=== PATIENT | male | born 1990 | race African-American/Black ===

== ENCOUNTER 2019-10-20 11:23 | Emergency (ER) | payer SELFPAY ==
[~2019-10-20] VITALS: Ht 190.5 cm; Wt 131.0 kg
[2019-10-20] MEDS ORDERED: PREDNISONE 20MG TABLET PO STA (14:14)
[2019-10-20] MEDS ORDERED: ALBUTEROL (0.083%) 2.5MG/3ML NEB HHN STA (14:14)
[2019-10-20] MEDS ORDERED: IPRATROPIUM BROMIDE (0.02%) 0.5MG/2.5ML NEB HHN STA (14:14)
[2019-10-20 14:26] VITALS: BP 147/89
== END 2019-10-20 14:31 | disposition home or self-care (01) ==
LOC: ER 11:30
DX: J20.9 Acute bronchitis, unspecified (principal)
CPT/HCPCS: 71045; 99283; J7512; J7611

== ENCOUNTER 2021-03-01 22:11 | Emergency (ER) | payer SELFPAY ==
[~2021-03-01] VITALS: Ht 190.5 cm; Wt 137.0 kg
[2021-03-01] MEDS ORDERED: FAMOTIDINE 20MG TABLET PO STA (22:47)
[2021-03-01] MEDS ORDERED: DIPHENHYDRAMINE 50MG/ML VIAL IM ONE (23:00)
[2021-03-01] MEDS ORDERED: DEXAMETHASONE 10 MG/ML VIAL IM ONE (23:00)
[2021-03-02] MEDS ORDERED: B50 MT (00:15)
[2021-03-02 00:30] VITALS: BP 139/80
== END 2021-03-02 00:32 | disposition home or self-care (01) ==
LOC: ER 22:11
DX: T78.1XXA Other adverse food reactions, not elsewhere classified, initial encounter (principal); L27.2 Dermatitis due to ingested food; R06.02 Shortness of breath; R03.0 Elevated blood-pressure reading, without diagnosis of hypertension; X58.XXXA Exposure to other specified factors, initial encounter
CPT/HCPCS: 93005; 96372; 99284; J1100; J1200

== ENCOUNTER 2023-02-05 08:10 | Emergency (ER) | payer SELFPAY ==
[~2023-02-05] VITALS: Ht 190.5 cm; Wt 137.0 kg
[~2023-02-05 08:10] MED LIST: B50 MT
[2023-02-05 08:26] VITALS: BP 136/95
[2023-02-05] MEDS ORDERED: MAGNESIUM/ALUMINUM HYDROXIDE/SIMETHICONE 30ML UDC PO STA (08:51)
[2023-02-05] MEDS ORDERED: VISCOUS LIDOCAINE 2% 15 ML UDC PO STA (08:51)
[2023-02-05] MEDS ORDERED: FAMOTIDINE 20MG TABLET PO ONE (09:00)
[2023-02-05 09:10] LABS: HEMATOCRIT. 48.8 % (42.0-52.0); HEMOGLOBIN. 16.9 g/dL (14.0-18.0); MEAN CORPUSCULAR HEMOGLOBIN 31.2 pg (28.0-32.0); MEAN CORPUSCULAR VOLUME 90.1 fL (80.0-94.0); MEAN PLATELET VOLUME 8.6 fl (7.4-10.4); PLATELET 235 x1000/uL (130-400); RED BLOOD CELL COUNT 5.42 mill/uL (4.7-6.1); RED CELL DISTRIBUTION WIDTH 13.3 % (11.6-14.6)
[2023-02-05 09:23] LABS: CHLORIDE 103 mEq/L (98-107)
[2023-02-05 09:30] LABS: CLARITY URINE CLEAR (CLEAR); COLOR URINE DARK YELLOW (YELLOW); KETONES URINE TRACE (NEGATIVE); LEUKOCYTE ESTERASE URINE TRACE (NEGATIVE); NITRITE URINE NEGATIVE (NEGATIVE); OCCULT BLOOD URINE NEGATIVE (NEGATIVE); PH URINE 6.5 (4.5-8.0); PROTEIN URINE 1+ (NEGATIVE); SPECIFIC GRAVITY URINE 1.025 (1.005-1.030)
[2023-02-05] MEDS ORDERED: POTASSIUM CHLORIDE 20MEQ/PACKET PO ONE (10:15)
[2023-02-05] MEDS ORDERED: MAG-55 MT (10:18)
[2023-02-05] MEDS ORDERED: FAMO-135 MT (10:18)
[2023-02-05 11:26] LABS: PLATELET ESTIMATE NORMAL
== END 2023-02-05 10:45 | disposition home or self-care (01) ==
LOC: ER 08:20
DX: R10.9 Unspecified abdominal pain (principal); R11.2 Nausea with vomiting, unspecified
CPT/HCPCS: 36415; 80053; 81003; 85025; 99284